=== PATIENT | female | born 1980 ===

== ENCOUNTER 2024-09-07 13:30 | Outpatient (CLI) | payer OTHER | END 2024-09-07 13:32 | disposition home or self-care (01) | LOC: SONOGRAMA 13:30 | PROVIDERS: ATTEND Pathology Anatomic Pathology & Clinical Pathology | DX: D34 Benign neoplasm of thyroid gland (principal); E06.3 Autoimmune thyroiditis; E04.8 Other specified nontoxic goiter ==